=== PATIENT | male | born 1970 | race Caucasian/White ===

== ENCOUNTER 2017-02-02 17:30 | Emergency (ER) | payer SELFPAY ==
[~2017-02-02 17:30] MED LIST: CYCLOBENZAPRINE10 M1 PO; CYCLOBENZAPRINE5 M1 PO; PREDNISONE10 M1 PO; ULTRAM50 M1 PO; ZOLOFT
== END 2017-02-02 17:36 ==
LOC: EDMED 17:30
DX: M54.41 Lumbago with sciatica, right side (principal)
CPT/HCPCS: J2270; J2360

== ENCOUNTER 2017-02-06 14:40 | Emergency (ER) | payer SELFPAY ==
[2017-02-07] MEDS ORDERED: TRAMADOL HCL50 M2 PO (14:16)
[2017-02-07] MEDS ORDERED: CYCLOBENZAPRINE5 M1 PO (14:16)
== END 2017-02-06 16:32 | disposition left against medical advice (07) ==
LOC: EDMED 14:40
DX: M54.5 Low back pain (principal); Z53.21 Procedure and treatment not carried out due to patient leaving prior to being seen by health care provider

== ENCOUNTER 2017-02-07 11:51 | Emergency (ER) | payer SELFPAY ==
[2017-02-07] MEDS ORDERED: TRAMADOL HCL50 M2 PO (14:16)
[2017-02-07] MEDS ORDERED: CYCLOBENZAPRINE5 M1 PO (14:16)
== END 2017-02-07 14:24 ==
LOC: EDMED 11:51
DX: M54.5 Low back pain (principal); F17.210 Nicotine dependence, cigarettes, uncomplicated

== ENCOUNTER 2017-04-04 00:57 | Emergency (ER) | payer OTHER ==
[~2017-04-04 00:57] MED LIST changes: +TRAMADOL HCL50 M2 PO
[2017-04-04] MEDS ORDERED: ZOLOFT100 M1 PO (01:08)
[2017-04-04] MEDS ORDERED: MUSCLE RELAXER (01:08)
[2017-04-04] MEDS ORDERED: ULTRAM50 M1 PO (01:09)
[2017-04-04 01:38] LABS: BASO % 0.9 % (0-2); BASO ABSOLUTE COUNT 0.1 tho/cmm (0.0-0.2); EOS % 0.8 % (0-7); EOSINOPHIL ABSOLUTE COUNT 0.1 tho/cmm (0.0-0.7); HCT-HEMATOCRIT 39.4 % (36.0-53.5); IMMATURE GRANULOCYTES ABSOLUTE 0.02 tho/cmm (0-0.03); IMMATURE GRANULOCYTES PERCENT 0.3 % (0-0.3); LYMPH % 18.3 % (20-45); LYMPH ABSOLUTE COUNT 1.2 tho/cmm (0.8-4.5); MCH (MEAN CORPUSCULAR HGB) 31.2 pg (28.0-32.0); MCHC MEAN CORPUSCULAR HGB CONC 35.5 % (32.0-36.0); MCV (MEAN CELL VOLUME) 87.8 fl (82.0-96.0); MONO % 10.4 % (0-12); MONOCYTE ABSOLUTE COUNT 0.7 tho/cmm (0.0-1.2); NEUTROPHIL ABSOLUTE COUNT 4.6 tho/cmm (1.6-8.0); NEUTROPHIL-AUTOMATED 4.6 tho/cmm (1.6-8.0); NEUTROPHILS % 69.3 % (40-80); PLATELET COUNT 148 tho/cmm (150-450); RED BLOOD COUNT 4.49 mil/cmm (4.40-5.70); RED CELL DISTRIBUTION WIDTH 17.4 % (12.4-16.4); WHITE BLOOD COUNT 6.6 tho/cmm (4.0-10.0)
[2017-04-04 01:48] LABS: URINE APPEARANCE CLEAR; URINE BILIRUBIN NEGATIVE (NEG); URINE BLOOD NEGATIVE (NEG); URINE COLOR YELLOW; URINE GLUCOSE (UA) NEGATIVE (NEG); URINE KETONE NEGATIVE (NEG); URINE LEUKOCYTE ESTERASE NEGATIVE (NEG); URINE NITRITE NEGATIVE (NEG); URINE PROTEIN NEGATIVE (NEG); URINE SPECIFIC GRAVITY 1.005 (1.003-1.030)
[2017-04-04 01:51] LABS: ALB/GLOB RATIO 1.2 (0.8-2.0); ALBUMIN 3.7 g/dl (3.5-5.0); ALKALINE PHOSPHATASE 84 U/L (33-138); ALT/SGPT 43 U/L (12-78); ANION GAP 15 mmol/L (0-20); AST/SGOT 53 U/L (10-40); BILIRUBIN,TOTAL 0.7 mg/dl (0.0-1.5); BLOOD UREA NITROGEN 5 mg/dl (6-24); CALCIUM 8.3 mg/dl (8.5-10.5); CARBON DIOXIDE-VENOUS 24 mmol/L (22-32); CHLORIDE 101 mmol/l (96-110); CREATININE 0.63 mg/dl (0.60-1.30); GLUCOSE 93 mg/dL (70-110); MAGNESIUM 1.7 mg/dl (1.8-2.6); POTASSIUM 3.2 mmol/L (3.7-5.1); SODIUM 137 mmol/L (135-145); eGFR VALUE FOR BLACK >90 mL/Min
[2017-04-04 02:05] LABS: ALCOHOL (ETOH) 274 mg/dl (<10)
[2017-04-04 02:07] LABS: TSH-THYROID STIMULATING HORM. 1.68 uIU/ml (0.40-3.80)
== END 2017-04-04 06:32 | disposition left against medical advice (07) ==
LOC: EDMED 00:57
PROVIDERS: Emergency Medicine
DX: F10.129 Alcohol abuse with intoxication, unspecified (principal); Y90.8 Blood alcohol level of 240 mg/100 ml or more; E87.6 Hypokalemia; F31.9 Bipolar disorder, unspecified; F41.9 Anxiety disorder, unspecified; F17.200 Nicotine dependence, unspecified, uncomplicated; Z79.899 Other long term (current) drug therapy; Z53.20 Procedure and treatment not carried out because of patient's decision for unspecified reasons
CPT/HCPCS: G0480; J7030